=== PATIENT | female | born 1980 | race Caucasian/White ===

== ENCOUNTER 2016-10-01 23:29 | Emergency (ER) | payer MEDICAID ==
[~2016-10-01] VITALS: Ht 162.6 cm; Wt 136.1 kg
[~2016-10-01 23:29] MED LIST: ATIVAN1 MG PO; NORCO 10/325 MG1 TAB PO
[2016-10-01 23:58] VITALS: BP 152/95
--- NOTE | 2016-10-02 00:24 | NUR ---
[facility] in [facility] - 10/02/16 at 0026 by MILAGROS PT TAKEN TO BED 5
--- NOTE | 2016-10-02 00:26 | NUR ---
PT TAKEN TO BED 6
--- NOTE | 2016-10-02 00:30 | NUR ---
PT IS 36/F BIB SELF TO ED WITH C/O LEFT LEG PAIN, REDNESS AND SWELLING FOR 5 DAYS. PT STATES NO MED HX. DENIES N/V/D; SKIN IS PINK/WARM/DRY; AAOX4 WITH EVEN AND STEADY GAIT; LUNGS CLEAR BL; HR EVEN AND REGULAR; PT DENIES ANY FEVER, CP, SOB, OR COUGH AT THIS TIME; PATIENT STATES PAIN OF 10/10 AT THIS TIME; VSS; PATIENT POSITIONED FOR COMFORT; HOB ELEVATED; BEDRAILS UP X2; BED DOWN. ER MD MADE AWARE OF PT STATUS.
[2016-10-02] MEDS ORDERED: [UNRECOGNIZED DRUG - OTHER] IM ONE (01:35)
[2016-10-02] MEDS ORDERED: MORPHINE SULFATE 10 MG/ML SYR IM ONE (01:35)
[2016-10-02] MEDS ORDERED: LIDOCAINE 1% IM ONE (01:35)
[2016-10-02] MEDS ORDERED: CEFTRIAXONE IM ONE (01:35)
[2016-10-02] MEDS ORDERED: HYDROcodone/APAP 10/325 MG 1 TAB TAB PO ONE (01:55)
--- NOTE | 2016-10-02 02:34 | NUR ---
Patient discharged with v/s stable. Written and verbal after care instructions given and explained. Patient alert, oriented and verbalized understanding of instructions. Ambulatory with steady gait. All questions addressed prior to discharge. ID band removed. Patient advised to follow up with PMD. Rx of NORCO AND KEFLEX given. Patient educated on indication of medication including possible reaction and side effects. Opportunity to ask questions provided and answered. D/C BY DR CALDERÓN.
[2016-10-02 02:37] VITALS: BP 135/74
== END 2016-10-02 02:34 | disposition home or self-care (01) ==
LOC: MED 23:29
DX: L03.116 Cellulitis of left lower limb (principal); L03.115 Cellulitis of right lower limb; I10 Essential (primary) hypertension; F41.9 Anxiety disorder, unspecified; Z88.0 Allergy status to penicillin
CPT/HCPCS: 96372; 99283; J0696; J2001

== ENCOUNTER 2016-11-03 23:28 | Emergency (ER) | payer MEDICAID ==
[~2016-11-03] VITALS: Ht 162.6 cm; Wt 131.5 kg
[~2016-11-03 23:28] MED LIST changes: -ATIVAN1 MG PO; +HYDR-4452 PO; +LORA-476 PO; -NORCO 10/325 MG1 TAB PO
[2016-11-03 23:57] VITALS: BP 180/58
--- NOTE | 2016-11-04 01:04 | NUR ---
PT TAKEN TO BED 7
--- NOTE | 2016-11-04 01:43 | NUR ---
X-Ray at bedside.
--- NOTE | 2016-11-04 01:46 | NUR ---
PATIENT PRESENTS TO ED WITH C.O RT RAINEY PAIN X3DAYS . PT STATES SHE FELL AT [place] . DENIES N/V/D; SKIN IS PINK/WARM/DRY; AAOX4 WITH EVEN AND STEADY GAIT; LUNGS CLEAR BL; HR EVEN AND REGULAR; PT DENIES ANY FEVER, CP, SOB, OR COUGH AT THIS TIME; PATIENT STATES PAIN OF 10/10 AT THIS TIME; VSS; PATIENT POSITIONED FOR COMFORT; HOB ELEVATED; BEDRAILS UP X2; BED DOWN. ER MD MADE AWARE OF PT STATUS.
[2016-11-04] MEDS ORDERED: MORPHINE SULFATE 10 MG/ML SYR IM ONE (02:10)
[2016-11-04] MEDS ORDERED: ACETAMINOPHEN EXTRA STRENGTH 500 MG TAB PO ONE (02:30)
[2016-11-04] MEDS ORDERED: HYDROcodone/APAP 10/325 MG 1 TAB TAB PO ONE (02:40)
[2016-11-04 03:08] VITALS: BP 151/79
--- NOTE | 2016-11-04 03:09 | NUR ---
PER DR CALDERÓN, Patient discharged with v/s stable. Written and verbal after care instructions given and explained. Patient alert, oriented and verbalized understanding of instructions. Ambulatory with steady gait. All questions addressed prior to discharge. ID band removed. Patient advised to follow up with PMD. Rx of TRAMADOL given. Patient educated on indication of medication including possible reaction and side effects. Opportunity to ask questions provided and answered. DC NOTE ONLY
== END 2016-11-04 03:09 | disposition home or self-care (01) ==
LOC: MED 23:28
DX: S83.91XA Sprain of unspecified site of right knee, initial encounter (principal); I10 Essential (primary) hypertension; F41.9 Anxiety disorder, unspecified; Z88.0 Allergy status to penicillin; W19.XXXA Unspecified fall, initial encounter; Y93.89 Activity, other specified; Y92.89 Other specified places as the place of occurrence of the external cause; Y99.8 Other external cause status
CPT/HCPCS: 73562; 99284; Q0092

== ENCOUNTER 2017-04-08 16:37 | Emergency (ER) | payer MEDICAID ==
[~2017-04-08] VITALS: Ht 165.1 cm; Wt 196.4 kg
[2017-04-08 16:41] VITALS: BP 161/111
[2017-04-08] MEDS ORDERED: HYDROcodone/APAP 5/325 MG 1 TAB TAB PO ONE (16:55)
[2017-04-08 17:11] VITALS: BP 170/98
== END 2017-04-08 17:11 | disposition home or self-care (01) ==
LOC: MED 16:37
DX: K08.89 Other specified disorders of teeth and supporting structures (principal); Z79.899 Other long term (current) drug therapy; Z88.0 Allergy status to penicillin
CPT/HCPCS: 99283

== ENCOUNTER 2017-04-28 17:55 | Emergency (ER) | payer MEDICAID ==
[~2017-04-28] VITALS: Ht 162.6 cm; Wt 158.8 kg
[~2017-04-28 17:55] MED LIST changes: +ACET-787 PO; -HYDR-4452 PO
[2017-04-28 18:05] VITALS: BP 152/90
--- NOTE | 2017-04-28 19:27 | NUR ---
PT TAKEN TO BED 7
--- NOTE | 2017-04-28 19:33 | NUR ---
Dr. Alvarado evaluating patient at bedside.
--- NOTE | 2017-04-28 19:45 | NUR ---
37/F C/O 05/01 RT KNEE PAIN, PT REPORTS " I WAS CLEANING TODAY AND I FELT LIKE MY RT KNEE SNAP WHICH I MAY HAVE FRACTURED BEFORE, I DONT KNOW". MILD SWELLING TO SITE NOTED, PT C/O TENDERNESS TO TOUCH. NO REDNESS, PERIPHERAL PULSES PRESENT, DENIES NUMBNESS OR TINGLING TO SITE. PT PUT ON COMFORTABLE POSITION. ED MD MADE AWARE OF PT STATUS
--- NOTE | 2017-04-28 19:55 | NUR ---
Patient discharged with v/s stable. Written and verbal after care instructions given and explained. Patient verbalized understanding. Ambulatory with steady gait. All questions addressed prior to discharge. Advised to follow up with PMD. JACKIE WRAP WITH CRUSHES USE.
[2017-04-28 19:57] VITALS: BP 145/85
== END 2017-04-28 19:55 | disposition home or self-care (01) ==
LOC: MED 17:55
DX: S86.811A Strain of other muscle(s) and tendon(s) at lower leg level, right leg, initial encounter (principal); Z88.0 Allergy status to penicillin; W01.0XXA Fall on same level from slipping, tripping and stumbling without subsequent striking against object, initial encounter; Y93.89 Activity, other specified; Y92.002 Bathroom of unspecified non-institutional (private) residence as the place of occurrence of the external cause; Y99.8 Other external cause status
CPT/HCPCS: 73562; 99284

== ENCOUNTER 2018-11-09 | Emergency (ER) | payer MEDICAID ==
[~2018-11-09] VITALS: Ht 162.6 cm; Wt 154.2 kg
[2018-11-09 00:13] VITALS: BP 157/83
--- NOTE | 2018-11-09 00:23 | NUR ---
PT AMBULATED TO BED 7.
--- NOTE | 2018-11-09 00:25 | NUR ---
PT CAME INTO ER WITH C/O OF LEFT LEG/FOOT PAIN X 4 DAYS. PT STATES HER HEEL AND LEG IS PAINFUL TO WALK AND IS SWOLLEN. PT HAS HX OF HTN. PT IS A/OX4. PEDAL PULSES NORMAL RANGE. PT HAS SOME SWELLING BUT NO REDNESS OBSERVED. PAIN LEVEL IS 10/10 AT THIS TIME .ER MD MADE AWARE OF STATUS. SAFETY PRECAUTIONS IMPLEMENTED, BED RAILS UP X 2.
[2018-11-09] MEDS ORDERED: HYDROcodone/APAP 5/325 MG 1 TAB TAB PO ONE (00:45)
--- NOTE | 2018-11-09 00:55 | NUR ---
XRAY AT BEDSIDE
[2018-11-09 03:13] VITALS: BP 157/83
--- NOTE | 2018-11-09 03:13 | NUR ---
Patient discharged with v/s stable. Written and verbal after care instructions given and explained. Patient alert, oriented and verbalized understanding of instructions. Ambulatory with steady gait. All questions addressed prior to discharge. ID band removed. Patient advised to follow up with PMD. Rx of naprosyn and norco was given. Patient educated on indication of medication including possible reaction and side effects. Opportunity to ask questions provided and answered.
== END 2018-11-09 03:13 | disposition home or self-care (01) ==
LOC: MED
DX: M77.32 Calcaneal spur, left foot (principal); Z79.891 Long term (current) use of opiate analgesic; Z79.899 Other long term (current) drug therapy; Z88.0 Allergy status to penicillin
CPT/HCPCS: 73630; 93971; 99284; Q0092; 29515

== ENCOUNTER 2020-05-02 20:21 | Emergency (ER) | payer MEDICAID ==
[~2020-05-02] VITALS: Ht 162.6 cm; Wt 186.0 kg
[~2020-05-02 20:21] MED LIST changes: -ACET-787 PO; +HYDR-5191 PO
[2020-05-02 20:23] VITALS: BP 161/94
--- NOTE | 2020-05-02 20:30 | NUR ---
PT 40 Y/O FEMALE BIB SELF FOR C/O L KNEE PAIN X 3 WEEKS. PT STATES PAIN 10/10 AND PROVOKED BY WALKING. PT BMI: 70.4. PT STATES, " I FEEL LIKE THE MORE WEIGHT I HAVE GAINED THE MORE MY KNEE STARTS TO HURT. PT CMS INTACT. PEDAL PULSES STRONG AND EQUAL BILAT. PT ABLE TO AMBULATE WITH ASSISTANCE WITH A CANE. PT STATES TOOK NORCO @ 0600, 1400 AND MOTRIN 800MG @ 1400 FOR PAIN MANAGEMENT. PT STATES PAIN DECREASED TEMPORARLY BUT CONTINUES TO COME BACK. MEDHX: FIBROMYALGIA, HTN. ALLGERGIES: PCN.
--- NOTE | 2020-05-02 20:30 | NUR ---
PT AMBULATED TO BED 11 WITH ASSISTANCE OF CANE.
--- NOTE | 2020-05-02 20:49 | NUR ---
EMMANUEL KOROMA AT BEDSIDE PERFORMING A MEDICAL EVALUATION. Addendum: 05/02/20 at 2054 by [email or web address] SHADI DRAKE
[2020-05-02] MEDS ORDERED: KETOROLAC 60 MG/2 ML VIAL IM ONE (20:55)
--- NOTE | 2020-05-02 21:02 | NUR ---
XRAY AT BEDSIDE.
--- NOTE | 2020-05-02 21:12 | NUR ---
EKG BEING PERFORMED AT BEDSIDE.
[2020-05-02 22:04] VITALS: BP 161/94
--- NOTE | 2020-05-02 22:04 | NUR ---
Patient discharged with v/s stable. Written and verbal after care instructions given and explained. Patient verbalized understanding. Ambulatory with steady gait. All questions addressed prior to discharge. Advised to follow up with PMD.
== END 2020-05-02 22:04 | disposition home or self-care (01) ==
LOC: MED 20:21
DX: M25.562 Pain in left knee (principal); R07.9 Chest pain, unspecified; I10 Essential (primary) hypertension; M79.7 Fibromyalgia; Z88.0 Allergy status to penicillin
CPT/HCPCS: 73562; 93005; 96372; 99283; J1885; Q0092

== ENCOUNTER 2021-10-14 19:52 | Emergency (ER) | payer MEDICAID ==
[~2021-10-14] VITALS: Ht 160 cm; Wt 200.7 kg
--- NOTE | 2021-10-14 19:56 | NUR ---
to bed ambulatory
[2021-10-14 19:59] VITALS: BP 159/91
--- NOTE | 2021-10-14 20:08 | NUR ---
RECEIVED IN BED 4 WITH C/O PALPITATIONS WITH NAUSEA AND ANXIETY X 2 DAYS. IS AWKAKE, ALERT AND VERY ANXIOUS. EKG IN PROGRESS
--- NOTE | 2021-10-14 20:13 | NUR ---
Dr. Olmstead examining patient.
[2021-10-14] MEDS ORDERED: diazePAM 5 MG TAB PO ONE (20:25)
--- NOTE | 2021-10-14 20:25 | NUR ---
X-Ray at bedside.
[2021-10-14 20:54] LABS: BASOPHILS # (AUTO) 0.1 K/uL (0.00-0.22); EOSINOPHILS # (AUTO) 0.3 K/uL (0-0.4); EOSINOPHILS % (AUTO) 2.1 % (0.0-4.0); HEMATOCRIT 39.2 % (36-48); HEMOGLOBIN 12.2 g/dL (12.0-16.0); LYMPHOCYTES # (AUTO) 3.7 K/uL (2.5-16.5); LYMPHOCYTES % (AUTO) 29.7 % (20.5-51.1); MEAN CORPUSCULAR HEMOGLOBIN 23 pg (27-31); MEAN CORPUSCULAR HGB CONC 31 g/dL (33-37); MEAN CORPUSCULAR VOLUME 74.6 fL (80-94); MONOCYTES # (AUTO) 0.6 K/uL (0.8-1.0); MONOCYTES % (AUTO) 4.7 % (1.7-9.3); NEUTROPHILS # (AUTO) 7.7 K/uL (1.8-7.7); NEUTROPHILS % (AUTO) 62.5 % (42.2-75.2); PLATELET COUNT (AUTO) 342 K/uL (140-450); RED BLOOD CELL COUNT(AUTO) 5.25 MIL/uL (4.20-5.40); RED CELL DISTRIBUTION WIDTH 18.4 % (11.6-13.7); WHITE BLOOD COUNT (AUTO) 12.4 K/uL (4.8-10.8)
[2021-10-14 21:21] LABS: ALBUMIN 3.5 g/dL (3.4-5.0); ANION GAP 14.2 (8-16); CARBON DIOXIDE 27.6 mmol/L (21-32); CREATININE 0.9 mg/dL (0.6-1.3); FREE T4 (FREE THYROXINE) 0.93 ng/dL (0.76-1.46); MAGNESIUM 1.8 mg/dL (1.8-2.4); POTASSIUM 3.8 mmol/L (3.5-5.1); THYROID STIMULATING HORMONE 7.67 uIU/mL (0.34-3.74)
--- NOTE | 2021-10-14 21:45 | NUR ---
SITTING AT SIDE OF BED. TROPONIN WILL BE REPEATED. DR SEGUNDO AT BEDSIDE
[2021-10-14] MEDS ORDERED: ACETAMINOPHEN EXTRA STRENGTH 500 MG TAB PO ONE (22:25)
[2021-10-14] MEDS ORDERED: HYDR25CA1 PO (22:34)
[2021-10-14 23:55] VITALS: BP 159/91
--- NOTE | 2021-10-14 23:55 | NUR ---
Patient discharged with v/s stable. Written and verbal after care instructions given and explained. Patient alert, oriented and verbalized understanding of instructions. Ambulatory with steady gait. All questions addressed prior to discharge. ID band removed. Patient advised to follow up with PMD. Rx of VISTARIL given. Patient educated on indication of medication including possible reaction and side effects. Opportunity to ask questions provided and answered.
== END 2021-10-14 23:55 | disposition home or self-care (01) ==
LOC: MED 19:52
DX: R00.2 Palpitations (principal); R94.6 Abnormal results of thyroid function studies; I10 Essential (primary) hypertension; E66.01 Morbid (severe) obesity due to excess calories; Z68.45 Body mass index [BMI] 70 or greater, adult; Z79.899 Other long term (current) drug therapy; Z88.0 Allergy status to penicillin
CPT/HCPCS: 36415; 71045; 80053; 83735; 84439; 84443; 84484; 85025; 93005; 99285; Q0092

== ENCOUNTER 2022-07-02 13:46 | Emergency (ER) | payer MEDICAID, OTHER ==
[~2022-07-02] VITALS: Ht 162.6 cm; Wt 208.8 kg
[~2022-07-02 13:46] MED LIST changes: +HYDR25CA1 PO
[2022-07-02 14:18] VITALS: BP 207/117
[2022-07-02] MEDS ORDERED: LABETALOL 20 MG/4 ML VIAL IVP ONE (14:35)
[2022-07-02] MEDS ORDERED: ONDANSETRON 4 MG/2 ML VIAL IVP ONE (14:35)
[2022-07-02] MEDS ORDERED: MORPHINE SULFATE 4 MG/ML SYR IVP ONE (14:35)
[2022-07-02 14:58] LABS: BASOPHILS % (AUTO) 0.4 % (0.0-2.0); EOSINOPHILS # (AUTO) 0.1 K/uL (0-0.4); EOSINOPHILS % (AUTO) 1.5 % (0.0-4.0); HEMATOCRIT 36.7 % (36-48); HEMOGLOBIN 11.6 g/dL (12.0-16.0); LYMPHOCYTES # (AUTO) 2.2 K/uL (2.5-16.5); LYMPHOCYTES % (AUTO) 23.3 % (20.5-51.1); MEAN CORPUSCULAR HEMOGLOBIN 24 pg (27-31); MEAN CORPUSCULAR HGB CONC 32 g/dL (33-37); MONOCYTES # (AUTO) 0.4 K/uL (0.8-1.0); MONOCYTES % (AUTO) 4.6 % (1.7-9.3); NEUTROPHILS # (AUTO) 6.6 K/uL (1.8-7.7); NEUTROPHILS % (AUTO) 70.2 % (42.2-75.2); PLATELET COUNT (AUTO) 342 K/uL (140-450); RED BLOOD CELL COUNT(AUTO) 4.89 MIL/uL (4.20-5.40); RED CELL DISTRIBUTION WIDTH 16.6 % (11.6-13.7); WHITE BLOOD COUNT (AUTO) 9.4 K/uL (4.8-10.8)
[2022-07-02] MEDS ORDERED: HYDROcodone/APAP 10/325 MG 1 TAB TAB PO ONE (15:20)
[2022-07-02] MEDS ORDERED: KETOROLAC 30 MG/ML VIAL IVP ONE (15:20)
[2022-07-02 15:23] LABS: APPEARANCE,URINE CLEAR (CLEAR); BILIRUBIN,URINE NEGATIVE (NEGATIVE); BLOOD, URINE NEGATIVE (NEGATIVE); COLOR,URINE YELLOW (YELLOW); LEUKOCYTE ESTERASE ,URINE NEGATIVE (NEGATIVE); NITRITE, URINE NEGATIVE (NEGATIVE); UGLUCOSE NEGATIVE (NEGATIVE)
[2022-07-02 15:41] LABS: ALBUMIN 3.4 g/dL (3.4-5.0); ANION GAP 11.1 (8-16); CARBON DIOXIDE 32.4 mmol/L (21-32); CREATININE 0.6 mg/dL (0.6-1.3); POTASSIUM 4.5 mmol/L (3.5-5.1); TOTAL BILIRUBIN 0.7 mg/dL (0.0-1.0)
--- NOTE | 2022-07-02 16:30 | NUR ---
pt already seen by , labs drawn, awaits dispo feels better about abd and legs pain, 09/29
[2022-07-02] MEDS ORDERED: SULF-58 PO (16:42)
[2022-07-02] MEDS ORDERED: HYDR-5080 PO (16:59)
[2022-07-02] MEDS ORDERED: METH-1681 PO (16:59)
[2022-07-02 17:08] VITALS: BP 156/88
== END 2022-07-02 17:08 | disposition home or self-care (01) ==
LOC: MED 13:46
DX: L03.311 Cellulitis of abdominal wall (principal); I89.0 Lymphedema, not elsewhere classified; E65 Localized adiposity; I10 Essential (primary) hypertension; E78.00 Pure hypercholesterolemia, unspecified; Z79.899 Other long term (current) drug therapy
CPT/HCPCS: 36415; 76700; 80053; 81003; 81025; 83690; 85025; 96374; 96375; 99285; J1885; J3490; Q0092; J2270; J2405

== ENCOUNTER 2023-08-28 13:46 | Emergency (ER) | payer MEDICAID, OTHER ==
[~2023-08-28] VITALS: Ht 167.6 cm; Wt 136.1 kg
[~2023-08-28 13:46] MED LIST changes: +HYDR-5080 PO; +METH-1681 PO; +SULF-58 PO
[2023-08-28 14:06] VITALS: BP 161/108; PULSE 89; RESP 18; TEMP 98; O2SAT 98
[2023-08-28 15:16] VITALS: BP 161/108; PULSE 89; RESP 18; TEMP 98
[2023-08-28 15:28] VITALS: O2SAT 98
[2023-08-28] MEDS: SODIUM PHOSPHATE 118 ML ENEM RC ONE (16:08)
[2023-08-28 16:19] LABS: BASOPHILS % (AUTO) 0.3 % (0.0-2.0); EOSINOPHILS # (AUTO) 0.1 K/uL (0-0.4); EOSINOPHILS % (AUTO) 0.8 % (0.0-4.0); HEMATOCRIT 34.5 % (36-48); HEMOGLOBIN 11.1 g/dL (12.0-16.0); LYMPHOCYTES # (AUTO) 1.7 K/uL (2.5-16.5); LYMPHOCYTES % (AUTO) 18.4 % (20.5-51.1); MEAN CORPUSCULAR HEMOGLOBIN 26 pg (27-31); MEAN CORPUSCULAR HGB CONC 32 g/dL (33-37); MEAN CORPUSCULAR VOLUME 79.2 fL (80-94); MONOCYTES # (AUTO) 0.4 K/uL (0.8-1.0); NEUTROPHILS # (AUTO) 7.2 K/uL (1.8-7.7); NEUTROPHILS % (AUTO) 76.5 % (42.2-75.2); PLATELET COUNT (AUTO) 293 K/uL (140-450); RED BLOOD CELL COUNT(AUTO) 4.35 MIL/uL (4.20-5.40); RED CELL DISTRIBUTION WIDTH 14.6 % (11.6-13.7); WHITE BLOOD COUNT (AUTO) 9.4 K/uL (4.8-10.8)
[2023-08-28 16:29] LABS: ANION GAP 12.2 (8-16); CALCIUM 8.8 mg/dL (8.5-10.1); CARBON DIOXIDE 29.4 mmol/L (21-32); CREATININE 0.6 mg/dL (0.6-1.3); POTASSIUM 3.6 mmol/L (3.5-5.1)
[2023-08-28 16:36] LABS: ALBUMIN 3.2 g/dL (3.4-5.0); BILIRUBIN,DIRECT 0.2 mg/dL (0.0-0.3); TOTAL BILIRUBIN 0.6 mg/dL (0.0-1.0); TOTAL PROTEIN, SERUM 8.1 g/dL (6.4-8.2)
[2023-08-28] MEDS: ACETAMINOPHEN EXTRA STRENGTH 500 MG TAB PO ONE (18:08)
[2023-08-28] MEDS: KETOROLAC 30 MG/ML VIAL IM ONE (18:10)
[2023-08-28] MEDS ORDERED: MIRABULK PO (19:28)
[2023-08-28] MEDS: MINERAL OIL 135 ML ENEM RC ONE (19:37)
[2023-08-28 19:45] LABS: APPEARANCE,URINE CLEAR (CLEAR); BILIRUBIN,URINE NEGATIVE (NEGATIVE); BLOOD, URINE NEGATIVE (NEGATIVE); COLOR,URINE YELLOW (YELLOW); LEUKOCYTE ESTERASE ,URINE NEGATIVE (NEGATIVE); NITRITE, URINE NEGATIVE (NEGATIVE); PROTEIN,URINE NEGATIVE (NEGATIVE); UGLUCOSE NEGATIVE (NEGATIVE); UROBILINOGEN,URINE 0.2 EU/dL (0.2 - 1)
== END 2023-08-28 20:10 | disposition home or self-care (01) ==
LOC: MED 13:46
DX: K59.00 Constipation, unspecified (principal); I10 Essential (primary) hypertension; Z79.899 Other long term (current) drug therapy
CPT/HCPCS: 36415; 74176; 80048; 80076; 81003; 81025; 83690; 84702; 85025; 96372; 99285; J1885